=== PATIENT | female | born 1970 | race Asian ===

== ENCOUNTER → 2023-07-28 14:46 | Outpatient (CLI) | payer OTHER, SELFPAY ==
--- NOTE | 2023-07-28 | DI.MRI.S_ITS ---
PROCEDURE: MR LUMBAR SPINE WO CON INDICATIONS: LUNBAR STENOSIS TECHNIQUE: Noncontrast sagittal T1 spin echo and T2 fast echo, sagittal STIR, and T2 fast spin echo through the lumbar spine. In cases with scoliosis, additional coronal T2 fast spin echo may be performed. COMPARISON: [facility] [place], [place], XR LUMBAR SPINE 2 OR 3 VIEWS, 04/08/2023, 13:24. FINDINGS: Image quality: Excellent. Alignment and Curvature: Grade 1 anterolisthesis of L4 on L5. Straightening of the normal lumbar lordosis. Bone Marrow: Marrow is of normal overall signal. No acute vertebral body compression fractures. Spinal Cord: Conus medullaris terminates at the L1 level. Visualized cord demonstrates normal signal and size. Paraspinous Soft Tissues: No paravertebral masses. T12-L1: Mild facet arthropathy. No central canal or neural foraminal stenosis. L1-L2: Facet arthropathy. No central canal or neural foraminal stenosis. L2-L3: Facet arthropathy and thickening of ligamentum flavum. No significant central canal or neural foraminal stenosis. L3-L4: Mild disc bulge. Facet arthropathy and thickening of ligamentum flavum. Mild central canal stenosis. No significant neural foraminal stenosis. L4-L5: Anterolisthesis. Disc desiccation and posterior disc bulge. Facet arthropathy and thickening of ligamentum flavum. Severe central canal stenosis. Moderate bilateral neural foraminal stenosis. L5-S1: Facet arthropathy. No central canal or neural foraminal stenosis. IMPRESSION: Degenerative changes of the lumbar spine, most pronounced at L4-5 with grade 1 anterolisthesis resulting in severe central canal stenosis and moderate bilateral neural foraminal stenosis. Dictated by: Paulo Hernandez M.D. on 07/28/2023 at 16:09 Approved by: Paulo Hernandez M.D. on 07/28/2023 at 16:13
== END ==
PROVIDERS: Referring Provider Orthopaedic Surgery Orthopaedic Surgery of the Spine; Visit Provider Orthopaedic Surgery Orthopaedic Surgery of the Spine
DX: M48.062 Spinal stenosis, lumbar region with neurogenic claudication (principal); M47.816 Spondylosis without myelopathy or radiculopathy, lumbar region; M47.817 Spondylosis without myelopathy or radiculopathy, lumbosacral region; M43.16 Spondylolisthesis, lumbar region
CPT/HCPCS: 72148